=== PATIENT | male | born 1965 | race Caucasian/White ===

== ENCOUNTER 2019-11-01 13:29 | Inpatient (IN) | payer OTHER ==
--- NOTE | 2019-11-01 14:40 | BHS.RME ---
Substance Use & Tx History - Substance Use History Alcohol Substance amount: 7 cans of 24 ounce beer Frequency of use: Daily Substance route: Oral Date of Last Use: 11/01/19 Opiates (Heroin) Substance amount: 1 bag Frequency of use: Once a month Substance route: Inhalation (ex: sniffing or snorting) Date of Last Use: 10/01/19 Physical/Psych/Mental Status - Behavior General Behavior: Decreased activity Eye Contact: Normal - Cooperativeness Cooperativeness: Cooperative - Thinking Thought Processes: Tight Thought content: Future oriented - Physical Health Problems Is patient presently having any pain?: No Does patient presently have any injuries (include location): No Does patient currently have a fever: No CIWA Nausea/Vomitin-Mild Nausea/No Vomiting Muscle Tremors: 3 Anxiety: 1-Mildly Anxious Agitation: 1-Slight > Activity Paroxysmal Sweats: 3 Orientation: 2-Disoriented Date<2 days Tacttile Disturbances: 0-None Auditory Disturbances: 1-Very Mild Visual Disturbances: 1-Very Mild Sensitivity Headache: 0-None Present CIWA-Ar Total Score: 13
--- NOTE | 2019-11-01 15:57 | HP ---
CIWA Score Nausea/Vomitin-Mild Nausea/No Vomiting Muscle Tremors: 3 Anxiety: 3 Agitation: 0-Normal Activity Paroxysmal Sweats: No Perspiration Orientation: 0-Oriented Tacttile Disturbances: 3-Moderate Itch/Numb/Burn Auditory Disturbances: 1-Very Mild Visual Disturbances: 1-Very Mild Sensitivity Headache: 0-None Present CIWA-Ar Total Score: 12 - Admission Criteria OASAS Guidelines: Admission for Medically Managed Detox: Requires at least one of the followin. CIWA greater than 12 2. Seizures within the past 24 hours 3. Delirium tremens within the past 24 hours 4. Hallucinations within the past 24 hours 5. Acute intervention needed for co occurring medical disorder 6. Acute intervention needed for co occurring psychiatric disorder 7. Severe withdrawal that cannot be handled at a lower level of care (continued vomiting, continued diarrhea, abnormal vital signs) requiring intravenous medication and/or fluids 8. Admitting History and Physical - Admission History of Present Illness: This is a 54 year old male with PMH of HTN, PAD (s/p B/L femoral stents) He drinks 6-7 cans of beer (24oz) per day, has been drinking for the past 15 years, his last drink was earlier today when he had 2 beers. He endorses no seizures or blackouts related to drinking. Was admitted overnight at [facility] for tachycardia 2-3 weeks ago when he tried to quit drinking. States he has had a few similar episodes in the past, only when he tries to quit drinking. He is on a methdaone program, 110mg last taken today, last sniffed 1 bag of heroin 2 weeks ago, denies IV use He smokes 1/2 ppd, has been smoking for 15 years. ROS: - Cough, productive at night - Insomnia - Nausea, vomiting occasionally PMH: - HTN, takes home meds regularly - Colonoscopy 3 years ago - Cholelithiasis, no intervention recommended PSH: - B/L femoral stents 2 years ago Social: - Lives with girlfriend and her 3 kids - Currently unemplyed, previously worked in school crossing guard of packages Physical Exam: - CIWA 13 - AOx3 - Lungs: Clear B/L - CVS: RRR - Abdomen: Soft, ND, NT - LE: B/L erythema (pt states no change for several years, since PAD) - DOOR PERSON: Motor 5/5 B/L, sensations intact Plan: - CIWA 12, will admit for alcohol detox and start on Librium protocol - Hx of HTN, will continue home meds - Will continue 110mg Methadone once confirmed - Smoking History Smoking history: Current every day smoker Have you smoked in the past 12 months: Yes Aproximately how many cigarettes per day: 10 - Alcohol/Substance Use Hx Alcohol Use: Yes (BEER) Admission ROS BHS - HPI Allergies/Adverse Reactions: Allergies Allergy/AdvReac Type Severity Reaction Status Date / Time No Known Allergies Allergy Verified 03/05/18 13:28 Patient History - Patient Medical History Hx Anemia: No Hx Asthma: No Hx Chronic Obstructive Pulmonary Disease (COPD): No Hx Cardiac Disorders: No Hx Hypertension: Yes (ON NORVASC 5 MG AND VALSARTAN 160 MG PO DAILY) HX Cerebrovascular Accident: No Hx Seizures: No Hx Diabetes: No Hx Gastrointestinal Disorders: No Hx Genitourinary Disorders: No Hx Sexually Transmitted Disorders: No (DENIES) Hx Renal Disease (ESRD): No Hx Thyroid Disease: No Hx Human Immunodeficiency Virus (HIV): No (NEGATIVE HX) Hx Hepatitis C: No (DENIES) Hx Depression: Yes (REPORTS NO MEDS) Hx Suicide Attempt: No (DENIES S/I) Hx Bipolar Disorder: No Hx Schizophrenia: No - Patient Surgical History Past Surgical History: Yes Hx Neurologic Surgery: No Hx Cataract Extraction: No Hx Cardiac Surgery: No Hx Lung Surgery: No Hx Breast Surgery: No Hx Breast Biopsy: Yes (RIGHT SIDE-BENIGN IN 2017) Hx Abdominal Surgery: No Hx Appendectomy: No Hx Cholecystectomy: No Hx Genitourinary Surgery: No Hx Section: No Hx Orthopedic Surgery: No Other Surgical History: biopsy, mass, right chest in 2017/stents x2 r/t circulation problem, lower Anesthesia Reaction: No - PPD History Date: 03/07/18 - Smoking Cessation Smoking history: Current every day smoker Have you smoked in the past 12 months: Yes Aproximately how many cigarettes per day: 10 Hx Chewing Tobacco Use: No Initiated information on smoking cessation: Yes 'Breaking Loose' booklet given: 11/01/19 Admission Physical Exam S - Diagnostic (1) Alcohol dependence with uncomplicated withdrawal Current Visit: No Status: Acute Breathalyzer - Breathalyzer Breathalyzer: 0.068 Urine Drug Screen - Test Device Lot number: [id number] Expiration date: 08/06/21 - Control Is test valid?: Yes - Results Drug screen NEGATIVE: No Urine drug screen results: MTD-Methadone, BZO-Benzodiazepines Inpatient Rehab Admission - Rehab Decision to Admit Inpatient rehab admission?: No
[2019-11-01] MEDS ORDERED: chlordiazePOXIDE HCL 25 MG CAPSULE PO PRN (16:01)
[2019-11-01] MEDS ORDERED: BISMUTH SUBSALICYLATE 524 MG/30 ML UD PO PRN (16:01)
[2019-11-01] MEDS ORDERED: MAGNESIUM HYDROX 2400MG/30ML ORAL SUSPENSION 30 ML CUP PO PRN (16:01)
[2019-11-01] MEDS ORDERED: IBUPROFEN 400 MG TABLET (FP) PO PRN (16:01)
[2019-11-01] MEDS ORDERED: hydrOXYzine PAMOATE 25 MG CAPSULE (FP) PO PRN (16:01)
[2019-11-01] MEDS ORDERED: MAG HYDROX/AL HYDROX/SIMETH 30 ML UNIT-DOSE CUP PO PRN (16:01)
[2019-11-01] MEDS ORDERED: MAGNESIUM CITRATE 300 ML BOTTLE PO PRN (16:01)
[2019-11-01] MEDS ORDERED: MENTHOL/PHENOL 1 EACH UD MM PRN (16:01)
[2019-11-01] MEDS ORDERED: ACETAMINOPHEN 325 MG TABLET (FP) PO PRN ×2 (16:01)
[2019-11-01] MEDS ORDERED: METHOCARBAMOL 500 MG TABLET PO PRN (16:01)
[2019-11-01 16:49] VITALS: BMI 23.7
[2019-11-01] MEDS: chlordiazePOXIDE HCL 25 MG CAPSULE PO SCH ×2 (17:35→22:10)
[2019-11-01] MEDS: NICOTINE 21 MG/24 HOURS TOPICAL PATCH TD SCH (17:36)
[2019-11-01] MEDS: MELATONIN 5 MG TABLETS PO PRN (22:11)
[2019-11-01] MEDS: THIAMINE HCL 100 MG TABLET (FP) PO SCH (22:11)
[2019-11-02] MEDS: chlordiazePOXIDE HCL 25 MG CAPSULE PO SCH ×4 (05:10→22:12)
[2019-11-02] MEDS ORDERED: METHADONE HCL 40 MG DISPERSABLE TABLET ONE (08:40)
[2019-11-02] MEDS ORDERED: METHADONE HCL 10 MG TABLET ONE (08:40)
[2019-11-02] MEDS ORDERED: METHADONE HCL 10 MG TABLET PO ONE (10:00)
[2019-11-02] MEDS ORDERED: METHADONE 80 MG, METHADONE 30 MG PO ONE (10:00)
[2019-11-02] MEDS: NICOTINE 21 MG/24 HOURS TOPICAL PATCH TD SCH (10:17)
[2019-11-02] MEDS: amLODIPine BESYLATE 5 MG TABLET (FP) PO SCH (10:17)
[2019-11-02] MEDS: VALSARTAN 160 MG TABLET (UD) PO SCH (10:17)
[2019-11-02] MEDS: PRENATAL VITAMINS W/ FOLIC ACID TABLET (FP) PO SCH (10:20)
[2019-11-02 11:00] LABS: HEMATOCRIT 36.3 % (35.4-49); HEMOGLOBIN 12.2 GM/dL (11.7-16.9); MCH 34.5 pg (25.7-33.7); MCHC 33.5 g/dl (32.0-35.9); MEAN CELL VOLUME 102.8 fl (80-96); MEAN PLT VOLUME 8.7 fl (7.5-11.1); PLATELET COUNT 135 K/MM3 (134-434); RBC 3.53 M/mm3 (4.00-5.60); RDW 13.2 % (11.9-15.9); WHITE BLOOD COUNT 4.3 K/mm3 (4.0-10.0)
[2019-11-02 11:39] LABS: ALBUMIN 2.5 g/dl (3.4-5.0); BILIRUBIN,TOTAL 0.6 mg/dL (0.2-1); BLOOD UREA NITROGEN 7.8 mg/dL (7-18); CALCIUM 8.2 mg/dL (8.5-10.1); CREATININE 0.7 mg/dL (0.55-1.3); POTASSIUM 3.7 mmol/L (3.5-5.1)
--- NOTE | 2019-11-02 13:51 | PN ---
Teaching Attending Note Name of Resident: Joaquín Caceres ATTENDING PHYSICIAN STATEMENT I saw and evaluated the patient. I reviewed the resident's note and discussed the case with the resident. I agree with the resident's findings and plan as documented. SUBJECTIVE: OBJECTIVE: ASSESSMENT AND PLAN:
--- NOTE | 2019-11-02 16:18 | PN ---
[facility] CIWA - CIWA Score Nausea/Vomitin-No Nausea/No Vomiting Muscle Tremors: 4-Moderate,w/Arms Extend Anxiety: 4-Mod. Anxious/Guarded Agitation: 0-Normal Activity Paroxysmal Sweats: 2 Orientation: 0-Oriented Tacttile Disturbances: 0-None Auditory Disturbances: 0-None Visual Disturbances: 1-Very Mild Sensitivity Headache: 0-None Present CIWA-Ar Total Score: 11 S Progress Note (SOAP) Subjective: 54 years old male admitted on 11/01/19 for alcohol withdrawal sx management treating with librium detox regiment received methadone 110 mg po today feeling ok social with peers in day room less tremor mild anxiety Objective: 11/02/19 16:19 Vital Signs Temperature 97.0 F L 11/02/19 12:32 Pulse Rate 86 11/02/19 12:32 Respiratory Rate 18 11/02/19 12:32 Blood Pressure 100/68 11/02/19 12:32 O2 Sat by Pulse Oximetry (%) Laboratory Last Values WBC 4.3 K/mm3 (4.0-10.0) 11/02/19 08:00 RBC 3.53 M/mm3 (4.00-5.60) L 11/02/19 08:00 Hgb 12.2 GM/dL (11.7-16.9) 11/02/19 08:00 Hct 36.3 % (35.4-49) 11/02/19 08:00 MCV 102.8 fl (80-96) H 11/02/19 08:00 MCH 34.5 pg (25.7-33.7) H 11/02/19 08:00 MCHC 33.5 g/dl (32.0-35.9) 11/02/19 08:00 RDW 13.2 % (11.9-15.9) 11/02/19 08:00 Plt Count 135 K/MM3 (134-434) D 11/02/19 08:00 MPV 8.7 fl (7.5-11.1) 11/02/19 08:00 Sodium 138 mmol/L (136-145) 11/02/19 08:00 Potassium 3.7 mmol/L (3.5-5.1) 11/02/19 08:00 Chloride 104 mmol/L (98-107) 11/02/19 08:00 Carbon Dioxide 27 mmol/L (21-32) 11/02/19 08:00 Anion Gap 7 MMOL/L (8-16) L 11/02/19 08:00 BUN 7.8 mg/dL (7-18) 11/02/19 08:00 Creatinine 0.7 mg/dL (0.55-1.3) 11/02/19 08:00 Est GFR (CKD-EPI)AfAm 124.00 11/02/19 08:00 Est GFR (CKD-EPI)NonAf 106.99 11/02/19 08:00 Random Glucose 102 mg/dL (74-106) 11/02/19 08:00 Calcium 8.2 mg/dL (8.5-10.1) L 11/02/19 08:00 Total Bilirubin 0.6 mg/dL (0.2-1) 11/02/19 08:00 AST 26 U/L (15-37) 11/02/19 08:00 ALT 22 U/L (13-61) 11/02/19 08:00 Alkaline Phosphatase 103 U/L (45-117) 11/02/19 08:00 Total Protein 7.0 g/dl (6.4-8.2) 11/02/19 08:00 Albumin 2.5 g/dl (3.4-5.0) L 11/02/19 08:00 RPR Titer Nonreactive (NONREACTIVE) 11/02/19 08:00 lab noted Assessment: 11/02/19 16:19 alcohol withdrawal Plan: librium regiment
[2019-11-02] MEDS: THIAMINE HCL 100 MG TABLET (FP) PO SCH (22:12)
[2019-11-02] MEDS: MELATONIN 5 MG TABLETS PO PRN (22:13)
[2019-11-03] MEDS ORDERED: METHADONE HCL 10 MG TABLET ONE (05:00)
[2019-11-03] MEDS ORDERED: METHADONE HCL 40 MG DISPERSABLE TABLET ONE (05:01)
[2019-11-03] MEDS: METHADONE 80 MG, METHADONE 30 MG PO SCH (05:27)
[2019-11-03] MEDS: chlordiazePOXIDE HCL 25 MG CAPSULE PO SCH ×4 (05:27→22:05)
[2019-11-03] MEDS ORDERED: METHADONE HCL 10 MG TABLET PO SCH (06:00)
[2019-11-03] MEDS: PRENATAL VITAMINS W/ FOLIC ACID TABLET (FP) PO SCH (10:06)
[2019-11-03] MEDS: amLODIPine BESYLATE 5 MG TABLET (FP) PO SCH (10:06)
[2019-11-03] MEDS: VALSARTAN 160 MG TABLET (UD) PO SCH (10:06)
[2019-11-03] MEDS: NICOTINE 21 MG/24 HOURS TOPICAL PATCH TD SCH (10:06)
--- NOTE | 2019-11-03 15:09 | PN ---
S CIWA - CIWA Score Nausea/Vomitin-No Nausea/No Vomiting Muscle Tremors: 3 Anxiety: 3 Agitation: 0-Normal Activity Paroxysmal Sweats: 1-Minimal Palms Moist Orientation: 0-Oriented Tacttile Disturbances: 0-None Auditory Disturbances: 0-None Visual Disturbances: 1-Very Mild Sensitivity Headache: 0-None Present CIWA-Ar Total Score: 8 S Progress Note (SOAP) Subjective: 54 years old male admitted on 11/01/19 for alcohol withdrawal sx management treating with librium detox regiment sitting on the edge of the bed eating breakfast ate lunch in room feeling ok today attending behavior and psychosocial therapies groups and meetings discussing aftercare with staff prefers geraldo nathan Objective: 11/03/19 15:10 Vital Signs Temperature 96.2 F L 11/03/19 12:40 Pulse Rate 89 11/03/19 12:40 Respiratory Rate 18 11/03/19 12:40 Blood Pressure 103/69 11/03/19 12:40 O2 Sat by Pulse Oximetry (%) Laboratory Last Values WBC 4.3 K/mm3 (4.0-10.0) 11/02/19 08:00 RBC 3.53 M/mm3 (4.00-5.60) L 11/02/19 08:00 Hgb 12.2 GM/dL (11.7-16.9) 11/02/19 08:00 Hct 36.3 % (35.4-49) 11/02/19 08:00 MCV 102.8 fl (80-96) H 11/02/19 08:00 MCH 34.5 pg (25.7-33.7) H 11/02/19 08:00 MCHC 33.5 g/dl (32.0-35.9) 11/02/19 08:00 RDW 13.2 % (11.9-15.9) 11/02/19 08:00 Plt Count 135 K/MM3 (134-434) D 11/02/19 08:00 MPV 8.7 fl (7.5-11.1) 11/02/19 08:00 Sodium 138 mmol/L (136-145) 11/02/19 08:00 Potassium 3.7 mmol/L (3.5-5.1) 11/02/19 08:00 Chloride 104 mmol/L (98-107) 11/02/19 08:00 Carbon Dioxide 27 mmol/L (21-32) 11/02/19 08:00 Anion Gap 7 MMOL/L (8-16) L 11/02/19 08:00 BUN 7.8 mg/dL (7-18) 11/02/19 08:00 Creatinine 0.7 mg/dL (0.55-1.3) 11/02/19 08:00 Est GFR (CKD-EPI)AfAm 124.00 11/02/19 08:00 Est GFR (CKD-EPI)NonAf 106.99 11/02/19 08:00 Random Glucose 102 mg/dL (74-106) 11/02/19 08:00 Calcium 8.2 mg/dL (8.5-10.1) L 11/02/19 08:00 Total Bilirubin 0.6 mg/dL (0.2-1) 11/02/19 08:00 AST 26 U/L (15-37) 11/02/19 08:00 ALT 22 U/L (13-61) 11/02/19 08:00 Alkaline Phosphatase 103 U/L (45-117) 11/02/19 08:00 Total Protein 7.0 g/dl (6.4-8.2) 11/02/19 08:00 Albumin 2.5 g/dl (3.4-5.0) L 11/02/19 08:00 RPR Titer Nonreactive (NONREACTIVE) 11/02/19 08:00 lab noted Assessment: 11/03/19 15:10 alcohol withdrawal Plan: librium regiment
[2019-11-03] MEDS: THIAMINE HCL 100 MG TABLET (FP) PO SCH (22:05)
[2019-11-03] MEDS: MELATONIN 5 MG TABLETS PO PRN (22:05)
[2019-11-04] MEDS ORDERED: chlordiazePOXIDE HCL 10 MG CAPSULE PO PRN
[2019-11-04] MEDS ORDERED: METHADONE HCL 10 MG TABLET ONE (04:14)
[2019-11-04] MEDS ORDERED: METHADONE HCL 40 MG DISPERSABLE TABLET ONE (04:15)
[2019-11-04] MEDS: chlordiazePOXIDE HCL 10 MG CAPSULE PO SCH ×4 (05:25→22:08)
[2019-11-04] MEDS: METHADONE 80 MG, METHADONE 30 MG PO SCH (05:25)
--- NOTE | 2019-11-04 09:38 | PN ---
[facility] CIWA - CIWA Score Nausea/Vomitin-No Nausea/No Vomiting Muscle Tremors: 3 Anxiety: 2 Agitation: 0-Normal Activity Paroxysmal Sweats: No Perspiration Orientation: 2-Disoriented Date<2 days Tacttile Disturbances: 0-None Auditory Disturbances: 1-Very Mild Visual Disturbances: 1-Very Mild Sensitivity Headache: 0-None Present CIWA-Ar Total Score: 9 BHS Progress Note (SOAP) Subjective: No complaints Objective: 11/04/19 09:36 Laboratory Tests 11/02/19 11/02/19 11/02/19 08:00 08:00 08:00 WBC 4.3 RBC 3.53 L Hgb 12.2 Hct 36.3 MCV 102.8 H MCH 34.5 H MCHC 33.5 RDW 13.2 Plt Count 135 D MPV 8.7 Sodium 138 Potassium 3.7 Chloride 104 Carbon Dioxide 27 Anion Gap 7 L BUN 7.8 Creatinine 0.7 Est GFR (CKD-EPI)AfAm 124.00 Est GFR (CKD-EPI)NonAf 106.99 Random Glucose 102 Calcium 8.2 L Total Bilirubin 0.6 AST 26 ALT 22 Alkaline Phosphatase 103 Total Protein 7.0 Albumin 2.5 L RPR Titer Nonreactive Vital Signs Temperature 98.1 F 11/04/19 08:32 Pulse Rate 97 H 11/04/19 08:32 Respiratory Rate 18 11/04/19 08:32 Blood Pressure 103/71 11/04/19 08:32 O2 Sat by Pulse Oximetry (%) PE: Gnl:WDWN, in no distress Mental status: nl Motor: moves limbs symmetrically Gait; steady Assessment: 11/04/19 09:37 1. alcohol use disorder Plan: 1. continue Librium withdrawal protocol 2. anticipate discharge on 11/05
[2019-11-04] MEDS: NICOTINE 21 MG/24 HOURS TOPICAL PATCH TD SCH (10:16)
[2019-11-04] MEDS: amLODIPine BESYLATE 5 MG TABLET (FP) PO SCH (10:16)
[2019-11-04] MEDS: PRENATAL VITAMINS W/ FOLIC ACID TABLET (FP) PO SCH (10:16)
[2019-11-04] MEDS: VALSARTAN 160 MG TABLET (UD) PO SCH (10:16)
[2019-11-04] MEDS: THIAMINE HCL 100 MG TABLET (FP) PO SCH (22:08)
[2019-11-04] MEDS: MELATONIN 5 MG TABLETS PO PRN (22:09)
[2019-11-05] MEDS ORDERED: METHADONE HCL 40 MG DISPERSABLE TABLET ONE (03:50)
[2019-11-05] MEDS ORDERED: METHADONE HCL 10 MG TABLET ONE (03:50)
[2019-11-05] MEDS: METHADONE 80 MG, METHADONE 30 MG PO SCH (05:54)
[2019-11-05] MEDS: chlordiazePOXIDE HCL 10 MG CAPSULE PO SCH ×2 (05:54→17:30)
--- NOTE | 2019-11-05 10:21 | PN ---
[facility] CIWA - CIWA Score Nausea/Vomitin-No Nausea/No Vomiting Muscle Tremors: None Anxiety: 2 Agitation: 0-Normal Activity Paroxysmal Sweats: 2 Orientation: 0-Oriented Tacttile Disturbances: 0-None Auditory Disturbances: 0-None Visual Disturbances: 0-None Headache: 0-None Present CIWA-Ar Total Score: 4 BHS Progress Note (SOAP) Subjective: c/o mild withdrawal symptoms. Objective: 11/05/19 10:20 Vital Signs 11/05/19 11/05/19 11/05/19 03:30 06:53 09:00 Temperature 97.3 F L 97.8 F Pulse Rate 78 107 H Respiratory 18 16 18 Rate Blood Pressure 135/82 102/75 Laboratory Last Values WBC 4.3 K/mm3 (4.0-10.0) 11/02/19 08:00 RBC 3.53 M/mm3 (4.00-5.60) L 11/02/19 08:00 Hgb 12.2 GM/dL (11.7-16.9) 11/02/19 08:00 Hct 36.3 % (35.4-49) 11/02/19 08:00 MCV 102.8 fl (80-96) H 11/02/19 08:00 MCH 34.5 pg (25.7-33.7) H 11/02/19 08:00 MCHC 33.5 g/dl (32.0-35.9) 11/02/19 08:00 RDW 13.2 % (11.9-15.9) 11/02/19 08:00 Plt Count 135 K/MM3 (134-434) D 11/02/19 08:00 MPV 8.7 fl (7.5-11.1) 11/02/19 08:00 Sodium 138 mmol/L (136-145) 11/02/19 08:00 Potassium 3.7 mmol/L (3.5-5.1) 11/02/19 08:00 Chloride 104 mmol/L (98-107) 11/02/19 08:00 Carbon Dioxide 27 mmol/L (21-32) 11/02/19 08:00 Anion Gap 7 MMOL/L (8-16) L 11/02/19 08:00 BUN 7.8 mg/dL (7-18) 11/02/19 08:00 Creatinine 0.7 mg/dL (0.55-1.3) 11/02/19 08:00 Est GFR (CKD-EPI)AfAm 124.00 11/02/19 08:00 Est GFR (CKD-EPI)NonAf 106.99 11/02/19 08:00 Random Glucose 102 mg/dL (74-106) 11/02/19 08:00 Calcium 8.2 mg/dL (8.5-10.1) L 11/02/19 08:00 Total Bilirubin 0.6 mg/dL (0.2-1) 11/02/19 08:00 AST 26 U/L (15-37) 11/02/19 08:00 ALT 22 U/L (13-61) 11/02/19 08:00 Alkaline Phosphatase 103 U/L (45-117) 11/02/19 08:00 Total Protein 7.0 g/dl (6.4-8.2) 11/02/19 08:00 Albumin 2.5 g/dl (3.4-5.0) L 11/02/19 08:00 RPR Titer Nonreactive (NONREACTIVE) 11/02/19 08:00 Labs noted. Assessment: 11/05/19 10:21 AOX3, in no respiratory distress. Full ROM, ambulating in the unit. Mild Withdrawal symptoms. For d/c tomorrow. Plan: continue detox. D/C in AM.
[2019-11-05] MEDS: amLODIPine BESYLATE 5 MG TABLET (FP) PO SCH (10:28)
[2019-11-05] MEDS: NICOTINE 21 MG/24 HOURS TOPICAL PATCH TD SCH (10:28)
[2019-11-05] MEDS: PRENATAL VITAMINS W/ FOLIC ACID TABLET (FP) PO SCH (10:28)
[2019-11-05] MEDS: VALSARTAN 160 MG TABLET (UD) PO SCH (10:28)
[2019-11-05] MEDS: MELATONIN 5 MG TABLETS PO PRN (22:09)
[2019-11-05] MEDS: THIAMINE HCL 100 MG TABLET (FP) PO SCH (22:09)
[2019-11-06] MEDS ORDERED: METHADONE HCL 10 MG TABLET ONE (03:54)
[2019-11-06] MEDS ORDERED: METHADONE HCL 40 MG DISPERSABLE TABLET ONE (03:55)
[2019-11-06] MEDS ORDERED: chlordiazePOXIDE HCL 10 MG CAPSULE PO ONE (05:00)
[2019-11-06] MEDS: METHADONE 80 MG, METHADONE 30 MG PO SCH (06:12)
[2019-11-06 06:32] VITALS: BP 124/78; PULSE 80; TEMP 98.9
--- NOTE | 2019-11-06 08:59 | DS ---
[facility] Detox Discharge Summary Admission Date: 11/01/19 Discharge Date: 11/06/19 - History Present History: Alcohol Dependence Additional Comments: 54 years old male admitted on 11/01/19 for alcohol withdrawal sx management treating with libirum detox regiment Mr Weldon had completed the libirum regiment and was tolerated well alert oriented x 3 respiratory clear lungs bilaterally on auscultation abdomen soft no rebound tenderness skin warm and dry Pertinent Past History: time for discharge 32 minutes patient may return to methadone program for medical and menta issues - Physical Exam Results Vital Signs: Vital Signs Temperature 98.9 F 11/06/19 06:03 Pulse Rate 80 11/06/19 06:03 Respiratory Rate 18 11/06/19 06:03 Blood Pressure 124/78 11/06/19 06:03 O2 Sat by Pulse Oximetry (%) Pertinent Admission Physical Exam Findings: alcohol withdrawal Laboratory Last Values WBC 4.3 K/mm3 (4.0-10.0) 11/02/19 08:00 RBC 3.53 M/mm3 (4.00-5.60) L 11/02/19 08:00 Hgb 12.2 GM/dL (11.7-16.9) 11/02/19 08:00 Hct 36.3 % (35.4-49) 11/02/19 08:00 MCV 102.8 fl (80-96) H 11/02/19 08:00 MCH 34.5 pg (25.7-33.7) H 11/02/19 08:00 MCHC 33.5 g/dl (32.0-35.9) 11/02/19 08:00 RDW 13.2 % (11.9-15.9) 11/02/19 08:00 Plt Count 135 K/MM3 (134-434) D 11/02/19 08:00 MPV 8.7 fl (7.5-11.1) 11/02/19 08:00 Sodium 138 mmol/L (136-145) 11/02/19 08:00 Potassium 3.7 mmol/L (3.5-5.1) 11/02/19 08:00 Chloride 104 mmol/L (98-107) 11/02/19 08:00 Carbon Dioxide 27 mmol/L (21-32) 11/02/19 08:00 Anion Gap 7 MMOL/L (8-16) L 11/02/19 08:00 BUN 7.8 mg/dL (7-18) 11/02/19 08:00 Creatinine 0.7 mg/dL (0.55-1.3) 11/02/19 08:00 Est GFR (CKD-EPI)AfAm 124.00 11/02/19 08:00 Est GFR (CKD-EPI)NonAf 106.99 11/02/19 08:00 Random Glucose 102 mg/dL (74-106) 11/02/19 08:00 Calcium 8.2 mg/dL (8.5-10.1) L 11/02/19 08:00 Total Bilirubin 0.6 mg/dL (0.2-1) 11/02/19 08:00 AST 26 U/L (15-37) 11/02/19 08:00 ALT 22 U/L (13-61) 11/02/19 08:00 Alkaline Phosphatase 103 U/L (45-117) 11/02/19 08:00 Total Protein 7.0 g/dl (6.4-8.2) 11/02/19 08:00 Albumin 2.5 g/dl (3.4-5.0) L 11/02/19 08:00 RPR Titer Nonreactive (NONREACTIVE) 11/02/19 08:00 Vital Signs Temperature 98.9 F 11/06/19 06:03 Pulse Rate 80 11/06/19 06:03 Respiratory Rate 18 11/06/19 06:03 Blood Pressure 124/78 11/06/19 06:03 O2 Sat by Pulse Oximetry (%) lab noted - Treatment Hospital Course: Detox Protocol Followed, Detoxed Safely, Responded well, Discharged Condition Good, Rehab Referral Accepted Patient has Accepted a Rehab Referral to: [facility] - Medication Discharge Medications: Ambulatory Orders Amlodipine Besylate [Norvasc -] 5 mg PO DAILY #30 tablet 03/07/18 Valsartan [Diovan] 160 mg PO DAILY #30 tablet 03/07/18 Methadone [Dolophine -] 110 mg PO DAILY 11/01/19 - Diagnosis (1) Alcohol dependence with uncomplicated withdrawal Status: Acute (2) Methadone maintenance therapy patient Status: Chronic (3) Hypertension Status: Chronic Qualifiers: Hypertension type: essential hypertension Qualified Code(s): I10 - Essential (primary) hypertension - AMA Did Patient Leave Against Medical Advice: No CIWA Score - CIWA Score Nausea/Vomitin-No Nausea/No Vomiting Muscle Tremors: None Anxiety: 1-Mildly Anxious Agitation: 0-Normal Activity Paroxysmal Sweats: 1-Minimal Palms Moist Orientation: 0-Oriented Tacttile Disturbances: 0-None Auditory Disturbances: 0-None Visual Disturbances: 0-None Headache: 0-None Present CIWA-Ar Total Score: 2
[2019-11-06] MEDS: PRENATAL VITAMINS W/ FOLIC ACID TABLET (FP) PO SCH (10:16)
[2019-11-06] MEDS: NICOTINE 21 MG/24 HOURS TOPICAL PATCH TD SCH (10:17)
[2019-11-06] MEDS: VALSARTAN 160 MG TABLET (UD) PO SCH (10:20)
[2019-11-06] MEDS: amLODIPine BESYLATE 5 MG TABLET (FP) PO SCH (10:20)
== END 2019-11-06 11:05 | disposition home or self-care (01) | DRG 773 ==
LOC: YASAS 13:29 → Y3N 16:50
PROVIDERS: ADMIT Allergy & Immunology; ATTEND Allergy & Immunology
PROC: HZ2ZZZZ Detoxification Services for Substance Abuse Treatment (ICD-10-PCS; principal; 2019-11-01)
DX: F10.230 Alcohol dependence with withdrawal, uncomplicated (principal); F11.20 Opioid dependence, uncomplicated; F17.210 Nicotine dependence, cigarettes, uncomplicated; I10 Essential (primary) hypertension; K80.20 Calculus of gallbladder without cholecystitis without obstruction; I73.9 Peripheral vascular disease, unspecified; Z95.828 Presence of other vascular implants and grafts
CPT/HCPCS: 36415; 80053; 85027; 86593